=== PATIENT | male | born 1980 | race Caucasian/White ===

== ENCOUNTER 2024-05-05 11:11 | Emergency (ER) | payer OTHER ==
[~2024-05-05] VITALS: Ht 177.8 cm; Wt 112.7 kg
[2024-05-05] MEDS ORDERED: DOXYCYCLINE HY100 MG PO (11:24)
[2024-05-05] MEDS ORDERED: VITAMIN D-40010 MCG PO (11:25)
[2024-05-05] MEDS ORDERED: BACTRIM DS TAB1 EACH PO (13:39)
[2024-05-05 13:57] VITALS: BP 159/79
== END 2024-05-05 13:57 | disposition home or self-care (01) ==
LOC: ED 11:11
DX: L72.3 Sebaceous cyst (principal); L08.89 Other specified local infections of the skin and subcutaneous tissue; Z79.899 Other long term (current) drug therapy
CPT/HCPCS: 10060; 99282-25